=== PATIENT | male | born 1990 | race American Indian/Alaskan Native ===

== ENCOUNTER 2019-09-06 09:26 | Emergency (ER) | payer SELFPAY ==
[2019-09-06 09:41] VITALS: BP 109/68
[2019-09-06 10:32] LABS: Hematocrit 43.6 % (35.5-45.6); Hemoglobin 14.3 gm/dl (11.8-15.2); Mean Corpuscular HGB Conc 33 % (32-34); Mean Corpuscular Volume 85 fl (84-94); Platelet Count 183 K/mm3 (140-440); Red Blood Count 5.16 M/mm3 (3.65-5.03); Red Cell Distribution Width 12.7 % (13.2-15.2)
[2019-09-06 10:34] LABS: Bilirubin,Urine NEG (Negative); Blood,Urine NEG (Negative); Color,Urine Yellow (Yellow); Mucus,Urine FEW /HPF; Urobilinogen,Urine < 2.0 mg/dL (<2.0); WBC,Urine < 1.0 /HPF (0.0-6.0)
[2019-09-06 10:51] LABS: Alanine Aminotransferase 14 units/L (7-56); Albumin 4.7 g/dL (3.9-5); BUN/Creatinine Ratio 16; Blood Urea Nitrogen 14 mg/dL (9-20); Calcium 9.2 mg/dL (8.4-10.2); Hemolysis Index 11
[2019-09-06 11:12] LABS: Total Cells Counted 100
[2019-09-06 11:13] LABS: Anisocytosis Few; Basophils % (Manual) 0 % (0.0-1.8); Eosinophils % (Manual) 0 % (0.0-4.3); Platelet Estimate Consistent w Auto
[2019-09-06] MEDS ORDERED: SODIUM CHLORIDE 0.9% 1000 ML 1,000 ML IV ONE (11:38)
[2019-09-06] MEDS ORDERED: ALUM-MAG HYDROXIDE-SIMETHICONE 200-200-20MG/5ML ORAL LIQD 30 ML PO ONE (11:38)
[2019-09-06] MEDS ORDERED: ONDANSETRON 4 MG/2 ML INJ IV ONE (11:38)
[2019-09-06] MEDS ORDERED: LIDOCAINE VISCOUS 2% 15 ML ORAL LIQD PO ONE (11:38)
[2019-09-06] MEDS ORDERED: DICYCLOMINE 20 MG TAB PO ONE (11:38)
--- NOTE | 2019-09-06 11:38 | Emergency Department Report ---
Vomiting/Diarrhea - HPI Chief Complaint: Abdominal Pain Stated Complaint: VOMITING/BODY PAIN Time Seen by Provider: 09/06/19 10:14 Duration: Today Severity: moderate (5/10) Nausea/Vomiting Severity: Moderate Diarrhea Severity: Mild Pain Location: Epigastric Pain Severity: Moderate (5/10) Symptoms: Yes Watery Diarrhea, Yes Recent Unusual Foods, No Bloody diarrhea, No Fever, No Able to Tolerate Fluids (and alcohol), No Recent Untreated Water, No Recent use of Antibiotics, No Family w/ Similar Symptoms, No Contacts w/ Similar Symptoms, No Rash, No Hematuria, No Recent URI Symptoms Other History: Physical 29-year-old male presented to the emergency room complaining of mid abdominal pain with nausea vomiting and diarrhea that started this morning. Resident blood in stool or vomit. He said he vomited several times this morning after eating 6 slim marry last night, turkey burger and 2 sixpack beer. He reports that he vomited in about 6 times this morning had loose stool a few time. He reports cramping 5/10 to epigastric area. Pain is constant and burning. ED Review of Systems ROS: Stated complaint: VOMITING/BODY PAIN Other details as noted in HPI Constitutional: denies: chills, fever Eyes: denies: eye discharge ENT: denies: throat pain, congestion Respiratory: denies: cough, shortness of breath, wheezing Cardiovascular: denies: chest pain, palpitations, edema, syncope Gastrointestinal: abdominal pain, nausea, vomiting, diarrhea. denies: constipation, hematemesis, melena, hematochezia Genitourinary: denies: hematuria Musculoskeletal: denies: back pain, arthralgia Skin: denies: rash Neurological: denies: headache ED Past Medical Hx - Past Medical History Previous Medical History?: No - Surgical History Past Surgical History?: No - Family History Family history: no significant - Social History Smoking Status: Current Every Day Smoker Substance Use Type: Alcohol - Medications Home Medications: Home Medications Medication Instructions Recorded Confirmed Last Taken Type Acetaminophen/Codeine 1 tab PO Q6H PRN #15 tab 08/22/14 Unknown Rx [Acetaminophen-Codeine #3 TAB] Amoxicillin [Amoxicillin TAB] 875 mg PO BID #20 tablet 08/22/14 Unknown Rx predniSONE [Deltasone] 50 mg PO QDAY #3 tab 08/22/14 Unknown Rx Dicyclomine [Bentyl] 40 mg PO QID 3 Days #12 tablet 09/06/19 Unknown Rx Famotidine [Pepcid] 20 mg PO BID 6 Days #12 tablet 09/06/19 Unknown Rx Ondansetron [Zofran ODT TAB] 8 mg PO Q8HR PRN #12 tab.rapdis 09/06/19 Unknown Rx Vomiting Diarrhea Exam - Exam General: Vital signs noted. No distress. Alert and acting appropriately. This is a 25-year-old male well-nourished well-developed in no acute distress. HEENT: No Pharyngeal Erythema, No Pharyngeal Exudates, No Moist Mucous Membranes (dry), No Rhinorrhea, No Conjuctival Injection, No Frontal Tenderness, No Maxillary Tenderness Neck: No Adenopathy, No Rigidity Lungs: Yes Clear Lung Sounds, No Good Air Exchange, No Wheezes, No Stridor, No Cough, No Nasal Flaring, No Retractions, No Use of Accessory Muscles Heart exam: Regular: Yes, Tachycardia: Yes (105) Abdomen: Tenderness: No (all quadrants), Peritoneal Signs: No, Distention: No, Hyperactive Bowel sounds: Yes (upper mid abdomen) Skin exam: Rash: No, Edema: No, Normal turgor: Yes Neurologic: Alert and oriented, no deficits. Musculoskeletal: Unremarkable. ED Course Vital Signs 09/06/19 09:39 Temperature 99 F Pulse Rate 105 H Respiratory 18 Rate Blood Pressure 109/68 [Left] O2 Sat by Pulse 97 Oximetry Vital Signs 09/06/19 09/06/19 09:39 13:06 Temperature 99 F Pulse Rate 105 H 78 Respiratory 18 Rate Blood Pressure 109/68 [Left] O2 Sat by Pulse 97 Oximetry - Reevaluation(s) Reevaluation #1: 09/06/19 13:03 Pt given 1 L of normal saline emergency room, Bentyl 40 mg by mouth, lidocaine 15 mL maalox 30 cc and Zofran 8 mg IV. Upon reevaluation abdominal exam remained normal and patient is feeling better without any nausea, pain, vomiting or diarrhea. ED Medical Decision Making - Lab Data Result diagrams: 09/06/19 10:15 09/06/19 10:15 Vital Signs 09/06/19 09:39 Temperature 99 F Pulse Rate 105 H Respiratory 18 Rate Blood Pressure 109/68 [Left] O2 Sat by Pulse 97 Oximetry - Medical Decision Making 29-year-old patient with nausea vomiting and diarrhea that has resolved after treated in emergency room with antinausea, IV fluid, fentanyl, Maalox and lidocaine. He is feeling much better. Vital signs stable afebrile and he is having no pain at present. Patient able to tolerate by mouth fluids and discharged home with prescription for Zofran, that he fell and Pepcid and to follow up with primary care physician in 2 days. He voiced understanding Critical care attestation.: If time is entered above; I have spent that time in minutes in the direct care of this critically ill patient, excluding procedure time. ED Disposition Clinical Impression: Nausea vomiting and diarrhea, Epigastric abdominal pain Disposition: - TO HOME OR SELFCARE Is pt being admited?: No Does the pt Need Aspirin: No Condition: Stable Instructions: Acute Nausea and Vomiting (ED), Abdominal Pain (ED), Gastroenteritis (ED), Dehydration (ED) Additional Instructions: Please start diet to include banana, rice, applesauce and toast over the next 2 days and then advance as tolerated. Avoid spicy and carbonated beverages. Please avoid alcohol. Take medication as prescribed. Follow-up with primary care in 2 days or if he condition worsens return to the emergency room. Referrals: URSULA JUAREZ MD [Primary Care Provider] - 09/08/19 Forms: Work/School Release Form(ED)
== END 2019-09-06 13:30 | disposition home or self-care (01) ==
LOC: ED 09:26
DX: R10.13 Epigastric pain (principal); R11.2 Nausea with vomiting, unspecified; R19.7 Diarrhea, unspecified; F17.200 Nicotine dependence, unspecified, uncomplicated
CPT/HCPCS: 36415; 80053; 81001; 85007; 85025; 96360; 99283; J2405; J7030

== ENCOUNTER 2019-09-20 15:40 | Emergency (ER) | payer SELFPAY ==
[2019-09-20 16:17] VITALS: BP 124/92
--- NOTE | 2019-09-20 16:50 | XRay Report ---
Right shoulder 3 views INDICATION: Right shoulder pain following fall IMPRESSION: Obliquely oriented fracture identified through the distal aspect of the right clavicle wi th extension into the right AC joint. Signer Name: David Carter MD Signed: 09/20/2019 4:45 PM Workstation Name: [id number]
--- NOTE | 2019-09-20 17:39 | Emergency Department Report ---
ED Extremity Problem HPI - General Chief complaint: Shoulder Injury Stated complaint: FELL ON (R) SHOULDER/ARM Source: patient Mode of arrival: Ambulatory Limitations: No Limitations - History of Present Illness Initial comments: Patient states that 3-1/2 days ago he tripped and fell onto his right shoulder. There is no loss of consciousness. Patient states since that time he has not attempted pain in the right shoulder is having difficulty raising his arm. Patient states the pain is aching and throbbing. - Related Data Previous Rx's Medication Instructions Recorded Last Taken Type Acetaminophen/Codeine 1 tab PO Q6H PRN #15 tab 08/22/14 Unknown Rx [Acetaminophen-Codeine #3 TAB] Amoxicillin [Amoxicillin TAB] 875 mg PO BID #20 tablet 08/22/14 Unknown Rx predniSONE [Deltasone] 50 mg PO QDAY #3 tab 08/22/14 Unknown Rx Dicyclomine [Bentyl] 40 mg PO QID 3 Days #12 tablet 09/06/19 Unknown Rx Famotidine [Pepcid] 20 mg PO BID 6 Days #12 tablet 09/06/19 Unknown Rx Ondansetron [Zofran ODT TAB] 8 mg PO Q8HR PRN #12 tab.rapdis 09/06/19 Unknown Rx HYDROcodone/APAP 5-325 [Thomas 1 each PO Q6HR PRN #10 tablet 09/20/19 Unknown Rx 5/325] Ibuprofen [Motrin 800 MG tab] 800 mg PO Q8HR PRN #14 tablet 09/20/19 Unknown Rx Allergies Allergy/AdvReac Type Severity Reaction Status Date / Time No Known Allergies Allergy Unverified 08/22/14 13:06 ED Review of Systems ROS: Stated complaint: FELL ON (R) SHOULDER/ARM Other details as noted in HPI Comment: All other systems reviewed and negative ED Past Medical Hx - Past Medical History Previous Medical History?: No - Surgical History Past Surgical History?: No - Social History Smoking Status: Never Smoker Substance Use Type: None - Medications Home Medications: Home Medications Medication Instructions Recorded Confirmed Last Taken Type Acetaminophen/Codeine 1 tab PO Q6H PRN #15 tab 08/22/14 Unknown Rx [Acetaminophen-Codeine #3 TAB] Amoxicillin [Amoxicillin TAB] 875 mg PO BID #20 tablet 08/22/14 Unknown Rx predniSONE [Deltasone] 50 mg PO QDAY #3 tab 08/22/14 Unknown Rx Dicyclomine [Bentyl] 40 mg PO QID 3 Days #12 tablet 09/06/19 Unknown Rx Famotidine [Pepcid] 20 mg PO BID 6 Days #12 tablet 09/06/19 Unknown Rx Ondansetron [Zofran ODT TAB] 8 mg PO Q8HR PRN #12 tab.rapdis 09/06/19 Unknown Rx HYDROcodone/APAP 5-325 [Thomas 1 each PO Q6HR PRN #10 tablet 09/20/19 Unknown Rx 5/325] Ibuprofen [Motrin 800 MG tab] 800 mg PO Q8HR PRN #14 tablet 09/20/19 Unknown Rx ED Physical Exam - General Limitations: No Limitations General appearance: alert, in no apparent distress - Head Head exam: Present: atraumatic, normocephalic - Eye Eye exam: Present: normal appearance - ENT ENT exam: Present: mucous membranes moist - Neck Neck exam: Present: normal inspection - Respiratory Respiratory exam: Present: normal lung sounds bilaterally. Absent: respiratory distress - Cardiovascular Cardiovascular Exam: Present: regular rate, normal rhythm - GI/Abdominal GI/Abdominal exam: Present: soft - Rectal Rectal exam: Present: deferred - Extremities Exam Extremities exam: Present: normal inspection - Expanded Upper Extremity Exam Right Shoulder Exam: Present: tenderness, tenderness over AC joint. Absent: full ROM, dislocation - Back Exam Back exam: Present: normal inspection - Neurological Exam Neurological exam: Present: alert, oriented X3 - Psychiatric Psychiatric exam: Present: normal affect, normal mood - Skin Skin exam: Present: warm, dry, intact, normal color. Absent: rash ED Course Vital Signs 09/20/19 16:15 Temperature 98.3 F Pulse Rate 101 H Respiratory 18 Rate Blood Pressure 124/92 O2 Sat by Pulse 100 Oximetry ED Medical Decision Making - Radiology Data Ordering Physician: JONNY STATON NP Date of Service: 09/20/19 Procedure(s): XR shoulder 2+V RT Accession Number(s): [id number] cc: JONNY STATON NP Fluoro Time In Minutes: Right shoulder 3 views INDICATION: Right shoulder pain following fall IMPRESSION: Obliquely oriented fracture identified through the distal aspect of the right clavicle with extension into the right AC joint. Signer Name: David Carter MD Signed: 09/20/2019 4:45 PM - Medical Decision Making Patient placed in a sling for comfort and given pain meds dictations as a prescription will be discharged home follow with orthopedics. Critical care attestation.: If time is entered above; I have spent that time in minutes in the direct care of this critically ill patient, excluding procedure time. ED Disposition Clinical Impression: Clavicle fracture Qualifiers: Encounter type: initial encounter Clavicle location: lateral end Fracture type: closed Fracture alignment: displaced Laterality: right Qualified Code(s): S42.031A - Displaced fracture of lateral end of right clavicle, initial encounter for closed fracture Disposition: DC-01 TO HOME OR SELFCARE Is pt being admited?: No Does the pt Need Aspirin: No Condition: Stable Instructions: Clavicle Fracture (ED) Referrals: PRISCILLA DORANTES MD [Staff Physician] - 3-5 Days Time of Disposition: 17:39
== END 2019-09-20 17:58 | disposition home or self-care (01) ==
LOC: ED 15:40
DX: S42.001A Fracture of unspecified part of right clavicle, initial encounter for closed fracture (principal); Z79.1 Long term (current) use of non-steroidal anti-inflammatories (NSAID); Z79.899 Other long term (current) drug therapy; W19.XXXA Unspecified fall, initial encounter; Y93.89 Activity, other specified; Y92.89 Other specified places as the place of occurrence of the external cause; Y99.8 Other external cause status

== ENCOUNTER 2019-10-30 18:01 | Emergency (ER) | payer SELFPAY ==
--- NOTE | 2019-10-30 18:51 | Emergency Department Report ---
Blank Doc - Documentation Documentation: 29-year-old male that presents with chest pain and heart palpations. Also sta wendy has dizzziness. This initial assessment/diagnostic orders/clinical plan/treatment(s) is/are subject to change based on patient's health status, clinical progression and re- assessment by fellow clinical providers in the ED. Further treatment and workup at subsequent clinical providers discretion. Patient/guardians urged not to elope from the ED as their condition may be serious if not clinically assessed and managed. Initial orders include: 1- Patient sent to [facility] for further evaluation and treatment 2- EKG 3- CXR 4- labs
[2019-10-30 19:17] LABS: Basophils % (Auto) 0.3 % (0.0-1.8); Eosinophils % (Auto) 0.5 % (0.0-4.3); Hematocrit 43.5 % (35.5-45.6); Hemoglobin 14.3 gm/dl (11.8-15.2); Lymphocytes # (Auto) 1.5 K/mm3 (1.2-5.4); Lymphocytes % (Auto) 27.1 % (13.4-35.0); Mean Corpuscular HGB Conc 33 % (32-34); Mean Corpuscular Volume 85 fl (84-94); Monocytes # (Auto) 0.4 K/mm3 (0.0-0.8); Monocytes % (Auto) 7.1 % (0.0-7.3); Platelet Count 232 K/mm3 (140-440); Red Cell Distribution Width 13.5 % (13.2-15.2)
--- NOTE | 2019-10-30 19:20 | XRay Report ---
CHEST 2 VIEWS INDICATION: cp. COMPARISON: None. FINDINGS: Support devices: None. Heart: Within normal limits. Lungs/Pleura: No acute air space or interstitial disease. No significant pleural effusion. IMPRESSION: No acute findings. Signer Name: Wang Crowley MD Signed: 10/30/2019 7:16 PM Workstation Name: [id number]
[2019-10-30 19:41] LABS: BUN/Creatinine Ratio 13; Blood Urea Nitrogen 10 mg/dL (9-20); Calcium 9.5 mg/dL (8.4-10.2); Hemolysis Index 11
--- NOTE | 2019-10-30 22:09 | Emergency Department Report ---
ED Palpitations HPI - General Chief Complaint: Arrhythmia/Palpitations Stated Complaint: IRREGULAR HEARTBEAT/DIZZY Time Seen by Provider: 10/30/19 18:49 Source: patient Mode of arrival: Ambulatory Limitations: No Limitations - History of Present Illness Initial Comments: Patient is a 29-year-old male who presented with palpitations. Patient states that he occasionally feels a thumping in his chest and also feels though his heart is beating irregularly. This is been present for the last 2-3 days. Patient denies caffeine use, drugs, or alcohol. Patient denies any chest pain or shortness of breath. MD Complaint: "skipped beats", palpitations Associated Symptoms: denies: shortness of breath, syncope, near-syncope, nausea/vomiting, anxiety, diaphoresis, cough, parasthesias, feeling of impending doom - Related Data Previous Rx's Medication Instructions Recorded Last Taken Type Acetaminophen/Codeine 1 tab PO Q6H PRN #15 tab 08/22/14 Unknown Rx [Acetaminophen-Codeine #3 TAB] Amoxicillin [Amoxicillin TAB] 875 mg PO BID #20 tablet 08/22/14 Unknown Rx predniSONE [Deltasone] 50 mg PO QDAY #3 tab 08/22/14 Unknown Rx Dicyclomine [Bentyl] 40 mg PO QID 3 Days #12 tablet 09/06/19 Unknown Rx Famotidine [Pepcid] 20 mg PO BID 6 Days #12 tablet 09/06/19 Unknown Rx Ondansetron [Zofran ODT TAB] 8 mg PO Q8HR PRN #12 tab.rapdis 09/06/19 Unknown Rx HYDROcodone/APAP 5-325 [Healy 1 each PO Q6HR PRN #10 tablet 09/20/19 Unknown Rx 5/325] Ibuprofen [Motrin 800 MG tab] 800 mg PO Q8HR PRN #14 tablet 09/20/19 Unknown Rx Allergies Allergy/AdvReac Type Severity Reaction Status Date / Time No Known Allergies Allergy Unverified 08/22/14 13:06 ED Review of Systems ROS: Stated complaint: IRREGULAR HEARTBEAT/DIZZY Other details as noted in HPI Comment: All other systems reviewed and negative ED Past Medical Hx - Past Medical History Previous Medical History?: No - Surgical History Past Surgical History?: No - Social History Smoking Status: Current Every Day Smoker Substance Use Type: Alcohol - Medications Home Medications: Home Medications Medication Instructions Recorded Confirmed Last Taken Type Acetaminophen/Codeine 1 tab PO Q6H PRN #15 tab 08/22/14 Unknown Rx [Acetaminophen-Codeine #3 TAB] Amoxicillin [Amoxicillin TAB] 875 mg PO BID #20 tablet 08/22/14 Unknown Rx predniSONE [Deltasone] 50 mg PO QDAY #3 tab 08/22/14 Unknown Rx Dicyclomine [Bentyl] 40 mg PO QID 3 Days #12 tablet 09/06/19 Unknown Rx Famotidine [Pepcid] 20 mg PO BID 6 Days #12 tablet 09/06/19 Unknown Rx Ondansetron [Zofran ODT TAB] 8 mg PO Q8HR PRN #12 tab.rapdis 09/06/19 Unknown Rx HYDROcodone/APAP 5-325 [Healy 1 each PO Q6HR PRN #10 tablet 09/20/19 Unknown Rx 5/325] Ibuprofen [Motrin 800 MG tab] 800 mg PO Q8HR PRN #14 tablet 09/20/19 Unknown Rx ED Physical Exam - General Limitations: No Limitations General appearance: alert, in no apparent distress - Head Head exam: Present: atraumatic, normocephalic - Eye Eye exam: Present: normal appearance - ENT ENT exam: Present: mucous membranes moist - Neck Neck exam: Present: normal inspection - Respiratory Respiratory exam: Present: normal lung sounds bilaterally. Absent: respiratory distress, wheezes, rales, rhonchi - Cardiovascular Cardiovascular Exam: Present: regular rate, normal rhythm. Absent: systolic murmur, diastolic murmur, rubs, gallop - GI/Abdominal GI/Abdominal exam: Present: soft, normal bowel sounds. Absent: tenderness, guarding, rebound - Rectal Rectal exam: Present: deferred - Extremities Exam Extremities exam: Present: normal inspection - Back Exam Back exam: Present: normal inspection - Neurological Exam Neurological exam: Present: alert, oriented X3 - Psychiatric Psychiatric exam: Present: normal affect, normal mood - Skin Skin exam: Present: warm, dry, intact, normal color. Absent: rash ED Course Vital Signs 10/30/19 10/30/19 10/30/19 18:04 20:36 20:37 Temperature 97.7 F 98.9 F Pulse Rate 115 H 74 Respiratory 16 18 18 Rate Blood Pressure 144/89 Blood Pressure 122/70 [Left] O2 Sat by Pulse 100 100 100 Oximetry ED Medical Decision Making - Lab Data Result diagrams: 10/30/19 18:57 10/30/19 18:57 - EKG Data -: EKG Interpreted by Me EKG shows normal: sinus rhythm, axis, intervals, QRS complexes, ST-T waves Rate: normal - EKG Data Interpretation: normal EKG - Medical Decision Making Patient was placed on a monitoring tech and I reviewed the monitoring tech activ ity last hour. No evidence of SVT or PVCs were seen. Patient will be referred to cardiology for outpatient evaluation. Critical care attestation.: If time is entered above; I have spent that time in minutes in the direct care of this critically ill patient, excluding procedure time. ED Disposition Clinical Impression: Palpitations Disposition: DC-01 TO HOME OR SELFCARE Is pt being admited?: No Does the pt Need Aspirin: No Condition: Stable Instructions: Palpitations (ED) Time of Disposition: 22:09
[2019-10-30 23:01] VITALS: BP 111/67
== END 2019-10-30 22:30 | disposition home or self-care (01) ==
LOC: ED 18:01
DX: R00.2 Palpitations (principal); F17.200 Nicotine dependence, unspecified, uncomplicated; Z79.899 Other long term (current) drug therapy
CPT/HCPCS: 36415; 71046; 80048; 84484; 85025; 93005; 93010

== ENCOUNTER 2021-04-11 06:52 | Emergency (ER) | payer SELFPAY ==
[2021-04-11 08:23] LABS: BUN/Creatinine Ratio 13; Blood Urea Nitrogen 10 mg/dL (9-20); Calcium 9.5 mg/dL (8.4-10.2); Hemolysis Index 9
[2021-04-11 08:28] VITALS: BP 115/79
--- NOTE | 2021-04-11 08:47 | Emergency Department Report ---
ED Palpitations HPI - General Chief Complaint: Arrhythmia/Palpitations Stated Complaint: IRREGULAR HEARTBEAT Time Seen by Provider: 04/11/21 07:30 Source: patient Mode of arrival: Ambulatory Limitations: No Limitations - History of Present Illness Initial Comments: 30-year-old male, no past medical history, presents to ED with complaint of palpitations. Patient states it felt as if his heart was racing and skipping beats. Patient states this has happened in the past. Patient reports he had just finished having sex and he was watching TV. Patient denies any chest pain or shortness of breath. Denies feeling any palpitations currently. Patient denies using any drugs, alcohol, Viagra, caffeine, or other supplements. MD Complaint: "heart racing", "skipped beats" -: This morning Associated Symptoms: denies: chest pain, shortness of breath, nausea/vomiting, diaphoresis - Related Data Allergies Allergy/AdvReac Type Severity Reaction Status Date / Time No Known Allergies Allergy Verified 04/11/21 07:40 ED Review of Systems ROS: Stated complaint: IRREGULAR HEARTBEAT Other details as noted in HPI Comment: All other systems reviewed and negative Constitutional: denies: chills, fever Respiratory: denies: shortness of breath Cardiovascular: palpitations. denies: chest pain Gastrointestinal: denies: nausea, vomiting ED Past Medical Hx - Past Medical History Previous Medical History?: No - Surgical History Past Surgical History?: No - Social History Smoking Status: Never Smoker Substance Use Type: None ED Physical Exam - General Limitations: No Limitations General appearance: alert, in no apparent distress - Head Head exam: Present: atraumatic, normocephalic - Eye Eye exam: Present: normal appearance, EOMI - ENT ENT exam: Present: mucous membranes moist - Neck Neck exam: Present: normal inspection - Respiratory Respiratory exam: Present: normal lung sounds bilaterally. Absent: respiratory distress - Cardiovascular Cardiovascular Exam: Present: normal rhythm, tachycardia - GI/Abdominal GI/Abdominal exam: Present: soft. Absent: distended, tenderness - Extremities Exam Extremities exam: Present: normal inspection - Neurological Exam Neurological exam: Present: alert, oriented X3 - Psychiatric Psychiatric exam: Present: normal affect, normal mood - Skin Skin exam: Present: warm, dry, intact, normal color ED Course Vital Signs 04/11/21 04/11/21 04/11/21 07:06 07:32 07:46 Temperature 98.4 F Pulse Rate 104 H 95 H 93 H Respiratory 18 15 12 Rate Blood Pressure 127/80 Blood Pressure 141/84 [Left] O2 Sat by Pulse 100 99 Oximetry 04/11/21 04/11/21 04/11/21 08:00 08:16 08:30 Temperature Pulse Rate 99 H 90 89 Respiratory 20 21 13 Rate Blood Pressure 115/79 115/79 115/79 Blood Pressure [Left] O2 Sat by Pulse 100 100 99 Oximetry 04/11/21 04/11/21 04/11/21 08:46 09:00 09:16 Temperature Pulse Rate 96 H 91 H 94 H Respiratory 20 16 13 Rate Blood Pressure 115/79 127/81 115/79 Blood Pressure [Left] O2 Sat by Pulse 100 100 100 Oximetry ED Medical Decision Making - Lab Data Result diagrams: 04/11/21 07:50 04/11/21 07:50 - EKG Data -: EKG Interpreted by Ut EKG shows normal: sinus rhythm, axis, intervals, QRS complexes, ST-T waves Rate: normal, tachycardia (rate 102) - EKG Data Interpretation: other (early repolarization) - Radiology Data Radiology results: report reviewed, image reviewed - Medical Decision Making EKG, labs, vital signs, chest x-ray unremarkable. Patient denies any palpitations currently. Outpatient follow-up advised with cardiology. Return precautions given. - Differential Diagnosis ACS, arrhythmia, electrolyte abnormality Critical care attestation.: If time is entered above; I have spent that time in minutes in the direct care of this critically ill patient, excluding procedure time. ED Disposition Clinical Impression: Palpitations Disposition: DC-01 TO HOME OR SELFCARE Is pt being admited?: No Condition: Stable Instructions: Palpitations, [id number] Referrals: ELEANOR GARZON MD [Staff Physician] - 3-5 Days Time of Disposition: 09:03
[2021-04-11 08:48] LABS: Hematocrit 38.9 % (35.5-45.6); Hemoglobin 12.8 gm/dl (11.8-15.2); Mean Corpuscular HGB Conc 33 % (32-34); Mean Corpuscular Volume 84 fl (84-94); Platelet Count 215 K/mm3 (140-440); Red Blood Count 4.63 M/mm3 (3.65-5.03)
[2021-04-11 08:49] LABS: Basophils % (Auto) 0.8 % (0.0-1.8); Eosinophils % (Auto) 0.3 % (0.0-4.3); Lymphocytes # (Auto) 1.2 K/mm3 (1.2-5.4); Lymphocytes % (Auto) 29.6 % (13.4-35.0); Monocytes # (Auto) 0.5 K/mm3 (0.0-0.8); Monocytes % (Auto) 12.8 % (0.0-7.3)
--- NOTE | 2021-04-11 09:07 | XRay Report ---
CHEST 1 VIEW INDICATION: palpitations. COMPARISON: 10/30/2019 FINDINGS: Support devices: None. Heart: Within normal limits. Lungs/Pleura: No acute air space or interstitial disease. Additional findings: None. IMPRESSION: No acute findings. Signer Name: Yaw Noriega Jr, MD Signed: 04/11/2021 9:02 AM Workstation Name: [id number]
--- NOTE | 2021-04-14 17:38 | Electrocardiograph Report ---
[facility] Test Date: 2021-04-11 Test Time: 07:06:58 Pat Name: PETER NAGY Department: Room: Gender: M Office Machine Installer: DOLORES : 1990 Requested By: MILAGROS GARCIA Order Number: [id number] Reading MD: Tonya Whipple Measurements Intervals Bennett Rate: 102 P: 73 GA: 125 QRS: 70 QRSD: 84 T: 57 QT: 311 QTc: 406 Interpretive Statements Sinus tachycardia ST elev, probable normal early repol pattern No previous ECG available for comparison Electronically Signed On 04-14-2021 17:38:28 EDT by Tonya Whipple
== END 2021-04-11 09:31 | disposition home or self-care (01) ==
LOC: ED 06:52
DX: R00.2 Palpitations (principal); Z79.899 Other long term (current) drug therapy
CPT/HCPCS: 36415; 71045; 80048; 84484; 85025; 93005

== ENCOUNTER 2021-06-17 21:12 | Emergency (ER) | payer SELFPAY | END 2021-06-18 01:07 | LOC: ED 21:12 | DX: R07.0 Pain in throat (principal); Z53.21 Procedure and treatment not carried out due to patient leaving prior to being seen by health care provider ==

== ENCOUNTER 2021-08-11 13:36 | Emergency (ER) | payer SELFPAY ==
--- NOTE | 2021-08-11 14:40 | Emergency Department Report ---
ED Chest Pain [facility] - General Chief Complaint: Chest Pain Stated Complaint: CHEST PAIN LIGHT HEADED PUI?: No Time Seen by Provider: 08/11/21 14:01 Source: patient Mode of arrival: Ambulatory - History of Present Illness Initial Comments: 31-year-old male with a past medical history of anxiety, and alcohol abuse presents to the ER today with complaints of left upper chest pain. Onset at 9:00 this morning. Patient states that he was just standing around at work when he started with the pain. He states that he is unable to describe the pain but he states that is intermittent. After the pain he started feeling lightheaded. He had a brief episode of where he could not breathe but this has since resolved. He denies any associated nausea, vomiting, cough, fever, chills or wheezing. He denies any lower extremity swelling or calf pain. Denies any associate abdominal pain. Denies any illicit drug use. He states that he drinks 12 pack of alcohol per day. MD Complaint: chest pain -: This morning - Related Data Allergies Allergy/AdvReac Type Severity Reaction Status Date / Time No Known Allergies Allergy Verified 04/11/21 07:40 Heart Score - HEART Score History: Slightly suspicious EKG: Normal Age: < 45 Risk factors: 1-2 risk factors Troponin: < normal limit HEART Score: 1 - EKG Read Time Time EKG Completed: 13:45 EKG Read Time: 13:50 - Critical Actions Critical Actions: 0-3 pts:0.9-1.7%risk of adverse cardiac event.Candidate for discharge ED Review of Systems ROS: Stated complaint: CHEST PAIN LIGHT HEADED Other details as noted in HPI ED Past Medical Hx - Social History Smoking Status: Current Some Day Smoker Substance Use Type: None ED Physical Exam - General General appearance: alert, in no apparent distress - Head Head exam: Present: atraumatic, normocephalic, normal inspection - Eye Eye exam: Present: normal appearance, PERRL, EOMI Pupils: Present: normal accommodation - Neck Neck exam: Present: normal inspection, full ROM - Respiratory Respiratory exam: Present: normal lung sounds bilaterally. Absent: respiratory distress, wheezes, rales, rhonchi, stridor - Cardiovascular Cardiovascular Exam: Present: regular rate, normal rhythm, normal heart sounds - GI/Abdominal GI/Abdominal exam: Present: soft. Absent: distended, tenderness, guarding, rebound - Extremities Exam Extremities exam: Present: normal inspection, full ROM. Absent: pedal edema, calf tenderness - Neurological Exam Neurological exam: Present: alert, oriented X3, CN II-XII intact, normal gait - Psychiatric Psychiatric exam: Present: normal affect, normal mood - Skin Skin exam: Present: intact ED Course Vital Signs 08/11/21 08/11/21 08/11/21 14:36 17:02 17:05 Temperature 98.1 F 98.0 F Pulse Rate 75 73 Respiratory 12 12 Rate Blood Pressure 116/67 Blood Pressure 122/75 [Right] O2 Sat by Pulse 99 99 99 Oximetry ED Medical Decision Making - Lab Data Result diagrams: 08/11/21 14:58 08/11/21 14:58 - EKG Data EKG shows normal: sinus rhythm Rate: normal (76) - EKG Data Interpretation: normal EKG - Radiology Data Radiology results: report reviewed Patient: PETER NAGY R#: [id number] : 1990 Acct:[id number] Age/Sex: 31 / M ADM Date: 08/11/21 Loc: ED Attending Dr: Ordering Physician: MARY PRESSLEY Date of Service: 08/11/21 Procedure(s): XR chest routine 2V Accession Number(s): [id number] cc: MARY PRESSLEY Fluoro Time In Minutes: CHEST 2 VIEWS INDICATION / CLINICAL INFORMATION: Chest pain. COMPARISON: Chest x-ray 04/11/2021 FINDINGS: SUPPORT DEVICES: None. HEART / MEDIASTINUM: No significant abnormality. LUNGS / PLEURA: No significant pulmonary or pleural abnormality. No pneumothorax. ADDITIONAL FINDINGS: No significant additional findings. IMPRESSION: 1. No acute findings. Signer Name: Frank Faust MD Signed: 08/11/2021 3:32 PM Workstation Name: [id number] Transcribed By: TL Dictated By: Frank Faust MD Electronically Authenticated By: Frank Faust MD Signed Date/Time: 08/11/211531 DD/ 30 TD/TT: - Medical Decision Making 31-year-old male with a past medical history of anxiety, and alcohol abuse presents to the ER today with complaints of left upper chest pain. Onset at 9:00 this morning. Patient states that he was just standing around at work when he started with the pain. He states that he is unable to describe the pain but he states that is intermittent. After the pain he started feeling lightheaded. He had a brief episode of where he could not breathe but this has since resolved. He denies any associated nausea, vomiting, cough, fever, chills or wheezing. He denies any lower extremity swelling or calf pain. Denies any associate abdominal pain. Denies any illicit drug use. He states that he drinks 12 pack of alcohol per day. Patient currently sitting comfortably in recliner. He is not in any acute distress. He is not toxic or ill-appearing. He is not in any respiratory d istress. His vital signs are stable. chest x-ray shows nothing acute. Labs reviewed --CBC and CMP unremarkable. Troponin is negative. EKG shows no STEMI or acute ischemic changes or any significant dysrhythmias. Patient has a heart score of 1. He has a PERC score of 0. the history, exam, diagnostic testing and current condition do not suggest that this patient is having acute myocardial infarction, significant arrhythmia, unstable angina, esophageal perforation, pulmonary embolism, aortic dissection, pneumothorax, severe pneumonia, sepsis or other significant pathology that would warrant further testing, continued ED treatment, admission or cardiology or other specialist consultation at this time. Exact cause of his pain at this time unclear, it could be related to his anxiety or GI like reflux or esophagitis since he does drink quite a bit of alcohol throughout the day. Discussed all results with patient, discussed suspected diagnosis with patient. He will be given referral to local PCP and to cardiology for further evaluation. His evaluation also be faxed over to the [facility] [place]. Patient expressed understanding of all instructions and agree with plan. Patient was stable at time of discharge. Critical care attestation.: If time is entered above; I have spent that time in minutes in the direct care of this critically ill patient, excluding procedure time. ED Disposition Clinical Impression: Nonspecific chest pain Disposition: 01 HOME / SELF CARE / HOMELESS Is pt being admited?: No Does the pt Need Aspirin: No Condition: Stable Instructions: Nonspecific Chest Pain, Adult, [id number] Additional Instructions: I recommend taking the tylenol as prescribed to help with pain. I recommend following up with PCP and distribution field engineer listed on your discharge instruction for further evaluation. Return to the ER if your symptoms changes or worsens in any way Referrals: PRIMARY CARE, [Primary Care Provider] - 3-5 Days NEAL ARITA MD [Staff Physician] - 3-5 Days DENNYS ALANIZ MD [Staff Physician] - 3-5 Days (Boat Dispatcher) Forms: Work/School Release Form(ED) Time of Disposition: 16:43
[2021-08-11 15:14] LABS: Basophils % (Auto) 0.6 % (0.0-1.8); Eosinophils % (Auto) 0.3 % (0.0-4.3); Hematocrit 39.1 % (35.5-45.6); Hemoglobin 12.7 gm/dl (11.8-15.2); Lymphocytes # (Auto) 0.8 K/mm3 (1.2-5.4); Lymphocytes % (Auto) 25.8 % (13.4-35.0); Mean Corpuscular HGB Conc 33 % (32-34); Mean Corpuscular Volume 85 fl (84-94); Monocytes # (Auto) 0.3 K/mm3 (0.0-0.8); Monocytes % (Auto) 10.4 % (0.0-7.3); Platelet Count 204 K/mm3 (140-440); Red Cell Distribution Width 13.7 % (13.2-15.2)
--- NOTE | 2021-08-11 15:36 | XRay Report ---
CHEST 2 VIEWS INDICATION / CLINICAL INFORMATION: Chest pain. COMPARISON: Chest x-ray 04/11/2021 FINDINGS: SUPPORT DEVICES: None. HEART / MEDIASTINUM: No significant abnormality. LUNGS / PLEURA: No significant pulmonary or pleural abnormality. No pneumothorax. ADDITIONAL FINDINGS: No significant additional findings. IMPRESSION: 1. No acute findings. Signer Name: Frank Faust MD Signed: 08/11/2021 3:32 PM Workstation Name: [id number]
[2021-08-11 15:42] LABS: Alanine Aminotransferase 20 units/L (7-56); Albumin 4.8 g/dL (3.9-5); Blood Urea Nitrogen 7 mg/dL (9-20); Calcium 9.3 mg/dL (8.4-10.2); Hemolysis Index 10
[2021-08-11 15:53] LABS: BUN/Creatinine Ratio 10
[2021-08-11 17:15] VITALS: BP 122/75
--- NOTE | 2021-08-12 11:17 | Electrocardiograph Report ---
[facility] Test Date: 2021-08-11 Test Time: 13:45:42 Pat Name: PETER NAGY Department: Room: Gender: M Supervisor [place]: MARY : 1990 Requested By: FORTUNATO RICARDO Order Number: [id number] Reading MD: Tonya Whipple Measurements Intervals [place] Rate: 76 P: 51 WV: 128 QRS: 76 QRSD: 75 T: 63 QT: 344 QTc: 388 Interpretive Statements Sinus arrhythmia Probable anteroseptal infarct, old Compared to ECG 04/11/2021 07:06:58 No significant change Electronically Signed On 08-12-2021 11:16:37 EST by Tonya Whipple
== END 2021-08-11 17:05 | disposition home or self-care (01) ==
LOC: ED 13:36
DX: R07.9 Chest pain, unspecified (principal); F17.210 Nicotine dependence, cigarettes, uncomplicated
CPT/HCPCS: 36415; 71046; 80053; 83690; 84484; 85025; 93005; 99283

== ENCOUNTER 2021-08-23 11:36 | Emergency (ER) | payer SELFPAY ==
[2021-08-23] MEDS ORDERED: SODIUM CHLORIDE 0.9% 1000 ML 1,000 ML IV ONE (11:53)
[2021-08-23] MEDS ORDERED: LORazepam 2 MG/ML VIAL IV ONE (11:55)
--- NOTE | 2021-08-23 11:58 | Emergency Department Report ---
ED Alcohol HPI - General Chief Complaint: Anxiety Stated Complaint: FEELING OF WANTING TO PASS OUT Time Seen by Provider: 08/23/21 11:47 Source: patient Mode of arrival: Ambulatory Limitations: No Limitations - History of Present Illness Initial Comments: Patient is 31 years old with history of chronic alcohol abuse. Patient stated that last drink was last night. Patient stated that he woke up this morning shaking a lot and feeling worried. Patient denied any suicidal or homicidal ideation. No visual hallucination. Patient stated that this is happened several times before and he wanted to see if he can get to alcohol rehab program. MD Complaint: alcohol withdrawal, desires rehab, medical clearance for det Time Since Last Drink: 12 -: hour(s) Chronic Alcohol Use: Yes Previous Visits for Alcohol Intoxication?: Yes Recent Trauma: No Associated Symptoms: tremors Treatments Prior to Arrival: none - Related Data Allergies Allergy/AdvReac Type Severity Reaction Status Date / Time No Known Allergies Allergy Verified 04/11/21 07:40 ED Review of Systems ROS: Stated complaint: FEELING OF WANTING TO PASS OUT Other details as noted in HPI Comment: All other systems reviewed and negative Constitutional: denies: chills, fever Respiratory: denies: cough, shortness of breath Gastrointestinal: denies: abdominal pain, nausea, vomiting Neurological: denies: headache, weakness, numbness, paresthesias Psychiatric: anxiety. denies: depression, auditory hallucinations, visual hallucinations, homicidal thoughts, suicidal thoughts ED Past Medical Hx - Past Medical History Previous Medical History?: Yes Additional medical history: ANXIETY - Surgical History Past Surgical History?: No - Social History Smoking Status: Current Some Day Smoker Substance Use Type: None ED Physical Exam - General Limitations: No Limitations General appearance: alert, anxious - Head Head exam: Present: atraumatic, normocephalic, normal inspection - Eye Eye exam: Present: normal appearance - ENT ENT exam: Present: mucous membranes dry - Neck Neck exam: Present: normal inspection - Respiratory Respiratory exam: Present: normal lung sounds bilaterally - Cardiovascular Cardiovascular Exam: Present: tachycardia - GI/Abdominal GI/Abdominal exam: Present: soft, normal bowel sounds. Absent: distended, tenderness, guarding, rebound, rigid, organomegaly, mass, bruit, pulsatile mass, hernia - Extremities Exam Extremities exam: Present: normal inspection, full ROM, normal capillary refill. Absent: tenderness - Back Exam Back exam: Present: normal inspection, full ROM. Absent: CVA tenderness (R), CVA tenderness (L) - Neurological Exam Neurological exam: Present: alert, oriented X3, CN II-XII intact - Psychiatric Psychiatric exam: Present: anxious. Absent: depressed, agitated, flat affect, manic, homicidal ideation, suicidal ideation - Skin Skin exam: Present: warm, intact, normal color ED Course Vital Signs 08/23/21 11:41 Temperature 98.8 F Pulse Rate 108 H Respiratory 18 Rate Blood Pressure 138/89 O2 Sat by Pulse 100 Oximetry ED Medical Decision Making - Lab Data Result diagrams: 08/23/21 12:09 08/23/21 12:09 - Medical Decision Making Patient is 31 years old with history of chronic alcohol abuse. Patient stated that last drink was last night. Patient stated that he woke up this morning [place] a lot and feeling worried. Patient denied any suicidal or homicidal ideation. No visual hallucination. Patient stated that this is happened several times before and he wanted to see if he can get to alcohol rehab program. Patient received normal saline and Ativan. Patient stated that he is feeling much better. Patient denied any seizure or visual hallucination. Patient given prescription for Librium and outpatient referral for alcohol rehab. Patient advised to return to the ER if he develop any new symptoms. Critical care attestation.: If time is entered above; I have spent that time in minutes in the direct care of this critically ill patient, excluding procedure time. ED Disposition Clinical Impression: Alcohol withdrawal, Palpitation Disposition: 01 HOME / SELF CARE / HOMELESS Is pt being admited?: No Condition: Stable Instructions: Alcohol Withdrawal Syndrome Referrals: PRIMARY CARE, [Primary Care Provider] - 3-5 Days
[2021-08-23 12:23] LABS: Basophils % (Auto) 0.4 % (0.0-1.8); Eosinophils % (Auto) 0.2 % (0.0-4.3); Hematocrit 43.9 % (35.5-45.6); Hemoglobin 14.1 gm/dl (11.8-15.2); Lymphocytes # (Auto) 1.6 K/mm3 (1.2-5.4); Lymphocytes % (Auto) 33.7 % (13.4-35.0); Mean Corpuscular HGB Conc 32 % (32-34); Mean Corpuscular Volume 85 fl (84-94); Monocytes # (Auto) 0.3 K/mm3 (0.0-0.8); Monocytes % (Auto) 6.7 % (0.0-7.3); Platelet Count 248 K/mm3 (140-440); Red Blood Count 5.18 M/mm3 (3.65-5.03)
[2021-08-23 12:57] LABS: Alanine Aminotransferase 18 units/L (7-56); BUN/Creatinine Ratio 10; Blood Urea Nitrogen 9 mg/dL (9-20); Calcium 9.2 mg/dL (8.4-10.2); Hemolysis Index 52
[2021-08-23 13:01] LABS: Bilirubin,Direct < 0.2 mg/dL (0-0.2)
[2021-08-23 13:01] LABS: Bilirubin,Urine NEG (Negative); Blood,Urine SM (Negative); Color,Urine Yellow (Yellow); Mucus,Urine FEW /HPF; Protein,Urine <15 mg/dL mg/dL (Negative); Urobilinogen,Urine < 2.0 mg/dL (<2.0); WBC,Urine < 1.0 /HPF (0.0-6.0)
[2021-08-23 13:09] LABS: Amphetamine Screen,Urine Negative; Benzodiazepines Screen,Urine Negative; Cannabinoid Screen,Urine Negative; Cocaine Screen,Urine Negative; Methadone Screen,Urine Negative; Opiate Screen,Urine Negative
[2021-08-23 14:27] VITALS: BP 109/71
== END 2021-08-23 14:27 | disposition home or self-care (01) ==
LOC: ED 11:36
DX: F10.239 Alcohol dependence with withdrawal, unspecified (principal); R00.2 Palpitations; F41.9 Anxiety disorder, unspecified; F17.200 Nicotine dependence, unspecified, uncomplicated; Z79.899 Other long term (current) drug therapy; Y90.9 Presence of alcohol in blood, level not specified
CPT/HCPCS: 36415; 80048; 80076; 80307; 81001; 85025; 96361; 96374; 99283; J2060; J7030; 80320; Q0162; G0480

== ENCOUNTER 2021-08-25 15:06 | Emergency (ER) | payer SELFPAY | END 2021-08-25 15:30 | LOC: ED 15:06 | DX: R11.0 Nausea (principal); Z53.21 Procedure and treatment not carried out due to patient leaving prior to being seen by health care provider ==

== ENCOUNTER 2021-08-25 17:49 | Emergency (ER) | payer SELFPAY ==
[2021-08-25 18:40] VITALS: BP 186/86
== END 2021-08-25 21:56 | disposition left against medical advice (07) ==
LOC: ED 17:49
DX: R06.00 Dyspnea, unspecified (principal); Z53.21 Procedure and treatment not carried out due to patient leaving prior to being seen by health care provider; F12.10 Cannabis abuse, uncomplicated